=== PATIENT | female | born 1960 | race Caucasian/White ===

== ENCOUNTER 2016-09-12 14:04 | Observation (INO) | payer BC ==
[~2016-09-12] VITALS: Ht 167.6 cm; Wt 59.0 kg
[~2016-09-12 14:04] MED LIST: ASPIRIN EC325 MG PO; ATORVASTATIN CA80 MG PO; EFFIENT10 MG PO; LISINOPRIL5 MG PO; LOPRESSOR25 MG PO; MECLIZINE HCL25 MG PO; PANTOPRAZOLE SO40 MG PO
[2016-09-12 14:50] LABS: HEMATOCRIT 42.9 % (36.0-46.0); MCH 31.5 PG (29.0-34.0); MCHC 33.3 G/DL (30.0-36.0); MCV 94.5 FL (83-99); MEAN PLAT.VOLUME 10.3 uM^3 (9.5-12.4); PLATELET COUNT 255 K/uL (156-360); RBC DIS.WIDTH-SD 48.6 % (39-53); RED BLOOD COUNT 4.54 M/uL (3.80-5.20); WHITE BLOOD COUNT 8.3 K/uL (4.1-10.2)
[2016-09-12 15:02] LABS: CHLORIDE 107 mEq/L (99-109); POTASSIUM 3.9 mEq/L (3.7-5.4); SODIUM 141 mEq/L (136-147)
[2016-09-12 15:04] LABS: GLUCOSE 82 mg/dL (70-99)
[2016-09-12 15:05] LABS: ANION GAP 9 MEQ/L (2-14)
[2016-09-12 15:07] LABS: GFR ESTIMATE (CALCULATED) > 59 mL/min/
[2016-09-12 15:08] LABS: UREA NITROGEN (BUN) 12 mg/dL (9-23)
[2016-09-12 15:15] LABS: TROP-I INTERPRETATION NEGATIVE; TROPONIN-I 0.01 ng/mL (0.0-0.30)
[2016-09-12] MEDS ORDERED: PLAVIX75 MG PO (16:14)
[2016-09-12] MEDS ORDERED: LO-DOSE ASPIRIN81 M1 PO (16:15)
[2016-09-12] MEDS ORDERED: PANTOPRAZOLE SO40 MG PO (16:15)
[2016-09-12] MEDS ORDERED: PRINIVIL20 MG PO (16:16)
[2016-09-12 17:06] VITALS: BP 186/97
[2016-09-12 17:21] LABS: TROP-I INTERPRETATION NEGATIVE; TROPONIN-I 0.12 ng/mL (0.0-0.30)
[2016-09-12 20:06] VITALS: BP 143/83
[2016-09-12 22:40] LABS: TROP-I INTERPRETATION INDETERMINATE; TROPONIN-I 0.31 ng/mL (0.0-0.30)
[2016-09-13 00:38] VITALS: BP 116/66
[2016-09-13 05:11] VITALS: BP 130/79
[2016-09-13 06:07] LABS: TROP-I INTERPRETATION INDETERMINATE; TROPONIN-I 0.34 ng/mL (0.0-0.30)
[2016-09-13 06:28] LABS: HEMATOCRIT 43.6 % (36.0-46.0); MCH 31.3 PG (29.0-34.0); MCHC 33.5 G/DL (30.0-36.0); MCV 93.4 FL (83-99); MEAN PLAT.VOLUME 10.8 uM^3 (9.5-12.4); PLATELET COUNT 270 K/uL (156-360); RBC DIS.WIDTH-SD 48.2 % (39-53); RED BLOOD COUNT 4.67 M/uL (3.80-5.20); WHITE BLOOD COUNT 8.2 K/uL (4.1-10.2)
[2016-09-13 07:02] LABS: ALKALINE PHOSPHATASE 58 IU/L (3-129); ANION GAP 9 MEQ/L (2-14); CHLORIDE 106 MEQ/L (99-109); GFR ESTIMATE (CALCULATED) > 59 mL/min/; GLUCOSE 89 mg/dL (70-99); POTASSIUM 4.3 MEQ/L (3.7-5.4); SAMPLE HEMOLYSIS CHECK 0; SAMPLE ICTERIC CHECK 0; SAMPLE LIPEMIA CHECK 0; SODIUM 140 MEQ/L (136-147); TOTAL BILIRUBIN 0.5 MG/DL (0.0-1.0); UREA NITROGEN (BUN) 15 mg/dL (9-23)
[2016-09-13 08:08] VITALS: BP 129/82
[2016-09-13 10:45] LABS: TROP-I INTERPRETATION INDETERMINATE; TROPONIN-I 0.55 ng/mL (0.0-0.30)
[2016-09-13 11:53] VITALS: BP 136/84
[2016-09-13 21:16] VITALS: BP 128/80
[2016-09-13 22:24] VITALS: BP 120/74
[2016-09-14 01:00] VITALS: BP 104/57
[2016-09-14 05:00] VITALS: BP 140/81
[2016-09-14 08:20] VITALS: BP 137/76
[2016-09-14 12:30] VITALS: BP 132/71
[2016-09-14] MEDS ORDERED: LISINOPRIL40 MG PO (14:01)
[2016-09-14] MEDS ORDERED: BRILINTA90 MG PO (14:01)
[2016-09-14] MEDS ORDERED: TYLENOL REGULA325 MG PO (14:01)
== END 2016-09-14 16:00 | disposition home or self-care (01) ==
LOC: EME 14:04 → 4EAST 16:10 → EDOF 16:10 → 5WEST 16:10 → EDOF 16:10 → 5WEST 16:46 → 4EAST 09-13 18:00 → 5WEST 09-13 18:00 → 4EAST 09-13 18:00
PROVIDERS: Emergency Medicine; Internal Medicine; Physician Assistant Medical
PROC: B2111ZZ Fluoroscopy of Multiple Coronary Arteries using Low Osmolar Contrast (ICD-10-PCS; principal; 2016-09-13)
PROC: B2151ZZ Fluoroscopy of Left Heart using Low Osmolar Contrast (ICD-10-PCS; principal; 2016-09-13)
PROC: 027035Z Dilation of Coronary Artery, One Artery with Two Drug-eluting Intraluminal Devices, Percutaneous Approach (ICD-10-PCS; principal; 2016-09-13)
PROC: 4A023N7 Measurement of Cardiac Sampling and Pressure, Left Heart, Percutaneous Approach (ICD-10-PCS; principal; 2016-09-13)
DX: T82.858A Stenosis of other vascular prosthetic devices, implants and grafts, initial encounter (principal); I21.4 Non-ST elevation (NSTEMI) myocardial infarction; I25.119 Atherosclerotic heart disease of native coronary artery with unspecified angina pectoris; Z95.5 Presence of coronary angioplasty implant and graft; I25.2 Old myocardial infarction; I10 Essential (primary) hypertension; E78.5 Hyperlipidemia, unspecified; F17.210 Nicotine dependence, cigarettes, uncomplicated
CPT/HCPCS: 71020; 80048; 80053; 84484; 85027; 85347; 93005; 99281; 99285; C1725; C1769; C1874; C1887; G0378; J1644; J1650; J2250; J3010; J7030